=== PATIENT | female | born 1995 | race Caucasian/White ===

== ENCOUNTER → 2016-06-06 | Outpatient (CLI) | payer MEDICAID | LOC: RAD 17:23 | PROVIDERS: ATTEND Nurse Practitioner Family | DX: M25.532 Pain in left wrist (principal) ==

== ENCOUNTER 2016-06-20 20:05 | Emergency (ER) | payer MEDICAID ==
[2016-06-20 20:32] VITALS: BP 103/59
--- NOTE | 2016-06-20 21:02 | ER Document Report ---
HPI - HPI Patient complains to provider of: sore throat, cough, congestion Onset: Other - 2 days Onset/Duration: Gradual Pain Level: 4 Context: 20-year-old nonsmoking female complaining of sore throat, cough, congestion, losing her voice for 2 days. No fever or chills. No nausea vomiting or diarrhea. No chest pain or shortness of breath. Associated Symptoms: None Exacerbated by: Denies Relieved by: Denies Similar symptoms previously: No Recently seen / treated by doctor: No - ROS ROS below otherwise negative: Yes Systems Reviewed and Negative: Yes All other systems reviewed and negative - REPRODUCTIVE LMP: 04/03/16 Reproductive: DENIES: : - DERM Skin Color: Normal Past Medical History - General Information source: Patient - Social History Smoking Status: Never Smoker Frequency of alcohol use: None Drug Abuse: None Lives with: Spouse/Significant other Family History: Reviewed & Not Pertinent Patient has suicidal ideation: No Patient has homicidal ideation: No - Medical History Medical History: Negative Renal/ Medical History: Denies: Hx Peritoneal Dialysis Psychiatric Medical History: Reports: Hx Depression Surgical Hx: Negative - Immunizations Immunizations up to date: Yes Hx Diphtheria, Pertussis, Tetanus Vaccination: Yes Vertical Provider Document - CONSTITUTIONAL Agree With Documented VS: Yes Exam Limitations: No Limitations - INFECTION CONTROL TRAVEL OUTSIDE OF THE [place] IN LAST 30 DAYS: No - HEENT HEENT: Normocephalic, PERRLA, Pharyngeal Erythema. negative: Conjuctival Injection, Tympanic Membrane Red - NECK Neck: Supple - RESPIRATORY Respiratory: Breath Sounds Normal, No Respiratory Distress O2 Sat by Pulse Oximetry: 100 - CARDIOVASCULAR Cardiovascular: Regular Rate, Regular Rhythm - GI/ABDOMEN Gastrointestinal: Abdomen Soft, Abdomen Non-Tender, No Organomegaly - MUSCULOSKELETAL/EXTREMETIES Musculoskeletal/Extremeties: MAIBRAHIMA, SANTHOSH - NEURO Level of Consciousness: Awake, Alert, Appropriate - DERM Integumentary: Warm, Dry, No Rash Course - Vital Signs Vital signs: Temp Pulse Resp BP Pulse Ox 97.7 F 87 16 103/59 L 100 06/20/16 20:28 06/20/16 20:28 06/20/16 20:28 06/20/16 20:28 06/20/16 20:28 Discharge - Discharge Clinical Impression: Laryngitis, upper respiratory infection, sore throat Condition: Good Disposition: HOME, SELF-CARE Instructions: Sore Throat ([facility]), Laryngitis ([facility]), Upper Respiratory Illness ( [facility]) Additional Instructions: Plenty of fluids Coolmist humidifier at night, wash daily Tylenol or ibuprofen for discomfort Throat culture is pending Return to the emergency room if worse Please complete the patient satisfaction survey if you get one, and return it.. If you do not receive a survey, then you can go to the [facility] website, [email or web address] and place your comments about your very good care. Thank you very much. It was a pleasure being your medical provider today. Forms: Return to Work Referrals: ADDIE DIAZ, DO [Primary Care Provider] - Follow up as needed
== END 2016-06-20 21:20 | disposition home or self-care (01) ==
LOC: ER 20:05
DX: J04.0 Acute laryngitis (principal); J06.9 Acute upper respiratory infection, unspecified; R05 Cough
CPT/HCPCS: 87070; 99282

== ENCOUNTER 2016-06-25 22:06 | Emergency (ER) | payer MEDICAID ==
[2016-06-26] MEDS ORDERED: PREDNISONE 20 MG TABLET PO ONE (01:24)
[2016-06-26] MEDS ORDERED: AZITHROMYCIN 250 MG TABLET PO ONE (01:24)
--- NOTE | 2016-06-26 01:26 | ER Document Report ---
ED General - General Chief Complaint: Cough, fever, sore throat Stated Complaint: FEVER,COUGH,VOMITING Notes: Patient is a pleasant 20-year-old female presents with complaint of runny nose, cough, congestion, sore throat for just over one week. She also has some vomiting with cough. She was seen here one week ago. He is symptomatically treatment. She says she continues have a cough and now spiking fevers. No abdominal pain. No chest pain. No other complaints this time. No sick contacts. She does not smoke. She is not currently breast-feeding. TRAVEL OUTSIDE OF THE [place] IN LAST 30 DAYS: No - Related Data Allergies/Adverse Reactions: No Known Allergies Allergy (Verified 10/06/15 13:40) Past Medical History - Social History Smoking Status: Never Smoker Frequency of alcohol use: None Drug Abuse: None Family History: Reviewed & Not Pertinent Renal/ Medical History: Denies: Hx Peritoneal Dialysis Psychiatric Medical History: Reports: Hx Depression - Immunizations Immunizations up to date: Yes Hx Diphtheria, Pertussis, Tetanus Vaccination: Yes Review of Systems - Review of Systems Notes: My Normal Review Basic REVIEW OF SYSTEMS: CONSTITUTIONAL : Denies fever, chills, or sweats. Denies recent illness. EENT: Denies eye, ear, throat, or mouth pain or symptoms. Denies nasal or sinus congestion. RESPIRATORY: Recurrent cough GASTROINTESTINAL: Denies abdominal pain. Some vomiting. Denies constipation. Last BM: MUSCULOSKELETAL: Denies neck or back pain or joint pain or swelling. SKIN: Denies rash or skin lesions. NEUROLOGICAL: Denies altered mental status or loss of consciousness. Denies headache. Denies weakness or paralysis or loss of use of either side. Denies problems with gait or speech. Denies sensory or motor loss. ALL OTHER SYSTEMS REVIEWED AND NEGATIVE. Physical Exam - Vital signs Vitals: Temp Pulse BP Pulse Ox 100.6 F H 131 H 121/79 100 06/25/16 23:01 06/25/16 23:01 06/25/16 23:01 06/25/16 23:01 - Notes Notes: General Appearance: Well nourished, alert, cooperative, no acute distress, no obvious discomfort. Recurrent dry cough during exam. Vitals: reviewed, See vital signs table. Head: no swelling or tenderness to the head Eyes: PERRL, EOMI, Conjuctiva clear Mouth: No decreasd moisture Ears: Normal appearing tympanic membranes. Throat: No tonsillar inflammation, No airway obstruction, No lymphadenopathy Neck: Supple, no neck tenderness Lungs: No wheezing, No rales, No rhonci, No accessory muscle use, good air exchange bilaterally. Heart: Normal rate, Regular rythm, No murmur, no rub Extremities: strength 5/5 in all extremities, good pulses in all extremities, no swelling or tenderness in the extremities, no edema. Skin: warm, dry, appropriate color, no rash Neuro: speech clear, oriented x 3, normal affect, responds appropriately to questions. Course - Vital Signs Vital signs: Temp Pulse Resp BP Pulse Ox 100.6 F H 131 H 121/79 100 06/25/16 23:01 06/25/16 23:01 06/25/16 23:01 06/25/16 23:01 - Transfer of Care Notes: 06/26/16 01:36 Patient has bronchitis. Lung phipps are clear but she has recurrent dry cough and is now having a fever after weakness symptoms. I will place on azithromycin and prednisone. I encouraged her to return to the ER if she has difficulty breathing, worsening cough, recurrent high fevers, or she feels unwell. Patient agrees with plan and will be discharged home. Dictation of this chart was performed using voice recognition software; therefore, there may be some unintended grammatical errors. Discharge - Discharge Clinical Impression: Bronchitis Condition: Good Disposition: HOME, SELF-CARE Additional Instructions: BRONCHITIS: You have acute bronchitis. This disease is an infection or inflammation of the air passageways in your lungs. Symptoms usually include cough, low grade fever, shortness of breath, and wheezing. The cough usually persists for a couple of weeks. Most cases of bronchitis get better without antibiotics. We prescribe antibiotics when we believe bacteria are damaging your airways, or if there's high risk the bronchitis will worsen into pneumonia. Increase your fluid intake. A cool mist humidifier may make your lungs more comfortable. An expectorant (cough medicine that loosens phlegm) can help. If you smoke, STOP!!! Recovery from bronchitis can be somewhat slow, but you should see improvement within a day or two. Repeated episodes of bronchitis may result in lung damage -- for example, chronic bronchitis, recurrent pneumonias, or emphysema. Call the doctor if you develop increasing fever, shortness of breath, chest pain, bloody sputum, or otherwise worsen. If you have not improved at all after several days, contact the physician. STEROID MEDICATION: You have been given an injection of or oral medicine of the cortisone/ steroid class. This medication is used to control inflammation or allergy. Jordan t is usually only given for a short period of time, until the acute process subsides. There are usually no side effects from short-term use of cortisone-like medications. Some persons feel an increased sense of well-being and are not sleepy at bedtime. Long-term use of cortisone medications is best avoided, unless required for a severe condition. If your condition does not remit, or relapses after the course of corticosteroid medication, you should consult your physician. ANTIBIOTIC THERAPY: You have been given an antibiotic prescription. It's important that you take all the medication, unless instructed otherwise by your physician. Failure to complete the entire course can result in relapse of your condition. Common side effects of antibiotics include nausea, intestinal cramping, or diarrhea. Women may develop vaginal yeast infections, and babies can get yeast (thrush) in the mouth following the use of antibiotics. Contact your physician if you develop significant side effects from this medication. Allergy to this antibiotic can result in hives, wheezing, faintness, or itching. If symptoms of allergy occur, stop the medication and call your doctor. AZITHROMYCIN: Azithromycin (Zithromax) is a broad spectrum antibiotic in the same class as erythromycin. It can treat a variety of bacterial infections, but is most frequently used for respiratory infections. Azithromycin is extremely long-lasting. It accumulates in body tissues and continues to kill bacteria for many days. In order to improve absorption, Azithromycin should be taken at least one hour before or two hours after a meal. It does not have the same strong tendency to upset the stomach as erythromycin and is usually very well tolerated. Patients who have had a rash or other true allergic reactions to erythromycin should not take this medication. Call if you develop gastrointestinal distress, severe diarrhea, rash, hives, itching, or shortness of breath. FOLLOW-UP CARE: If you have been referred to a physician for follow-up care, call the physician s office for an appointment as you were instructed or within the next two days. If you experience worsening or a significant change in your symptoms, notify the physician immediately or return to the Emergency Department at any time for re-evaluation. Please return to the ER immediately if you have difficulty breathing, recurrent fevers, intractable vomiting, or feel unwell. Prescriptions: Azithromycin 250 mg PO DAILY #4 tablet Prednisone [Deltasone 20 mg Tablet] 3 tab PO DAILY 4 Days Forms: Return to Work
[2016-06-26 01:49] VITALS: BP 121/77
== END 2016-06-26 01:56 | disposition home or self-care (01) ==
LOC: ER 22:06
DX: J40 Bronchitis, not specified as acute or chronic (principal); R05 Cough; R09.89 Other specified symptoms and signs involving the circulatory and respiratory systems; R50.9 Fever, unspecified; F41.9 Anxiety disorder, unspecified; R00.0 Tachycardia, unspecified; J02.9 Acute pharyngitis, unspecified; R11.10 Vomiting, unspecified
CPT/HCPCS: 99283; Q0144; J7512

== ENCOUNTER 2017-02-22 19:50 | Inpatient (IN) | payer MEDICAID ==
[2017-02-22 20:35] LABS: APPEARANCE,URINE CLEAR; BILIRUBIN,URINE NEGATIVE (NEGATIVE); GLUCOSE, URINE 50 mg/dL (NEGATIVE); KETONES,URINE NEGATIVE (NEGATIVE); LEUKOCYTE ESTERASE,URINE NEGATIVE (NEGATIVE); NITRITE,URINE NEGATIVE (NEGATIVE); PROTEIN,URINE NEGATIVE (NEGATIVE); URINE SPECIFIC GRAVITY 1.009; UROBILINOGEN,URINE NEGATIVE mg/dL (<2.0)
[2017-02-22 20:37] LABS: AMNISURE (ROM) POSITIVE (NEGATIVE)
[2017-02-22] MEDS ORDERED: RINGERS SOLUTION,LACTATED 1,000 ML IV ONE (20:39)
[2017-02-22 20:51] LABS: URINE BARBITURATES SCREEN NEGATIVE; URINE METHADONE SCREEN NEGATIVE; URINE OPIATES LOW NEGATIVE; URINE PHENCYCLIDINE SCREEN NEGATIVE
[2017-02-22 21:26] LABS: ABSOLUTE BASOPHILS # (AUTO) 0.1 10^3/uL (0.0-0.2); ABSOLUTE EOSINOPHILS # (AUTO) 0.3 10^3/uL (0.0-0.6); ABSOLUTE LYMPHOCYTES (AUTO) 1.8 10^3/uL (0.5-4.7); ABSOLUTE NEUT (AUTO) 7.4 10^3/uL (1.7-8.2); BASOPHILS % (AUTO) 0.6 % (0-2); HEMATOCRIT 29.2 % (36.0-47.0); HEMOGLOBIN 9.8 g/dL (12.0-15.5); HGB HCT DIFFERENCE 0.2; MEAN CORPUSCULAR HGB CONC 33.6 g/dL (32.0-36.0); MEAN CORPUSCULAR VOLUME 81 fl (80-97); MONOCYTES % (AUTO) 9.9 % (3-13); RED BLOOD COUNT 3.63 10^6/uL (3.72-5.28); RED CELL DISTRIBUTION WIDTH 16.3 % (11.5-14.0); SEGMENTED NEUTROPHILS % (AUTO) 69.5 % (42-78); WHITE BLOOD COUNT 10.6 10^3/uL (4.0-10.5)
[2017-02-22 22:26] LABS: ADD HIVPANEL? NO; HIV (1 AND 2) ANTIBODY NEGATIVE (NEGATIVE)
[2017-02-23] MEDS ORDERED: OXYTOCIN/NORMAL SALINE 20 UNIT/1,000 ML RTUINJ ONE ×2 (00:09→04:57)
[2017-02-23] MEDS: RINGERS SOLUTION,LACTATED 1,000 ML IV PRN ×2 (00:20→02:27)
[2017-02-23] MEDS ORDERED: OXYTOCIN/NORMAL SALINE 20 UNIT/1,000 ML RTUINJ IV PRN ×2 (00:25→06:17)
[2017-02-23] MEDS ORDERED: EPHEDRINE SULFATE INJ 50 MG/1 ML AMPULE ONE (02:35)
[2017-02-23] MEDS ORDERED: FENTANYL/BUPIVACAINE/NS/PF 200 MCG/100 ML RTUINJ EPI ONE (02:36)
[2017-02-23] MEDS ORDERED: BUPIVACAINE HCL 0.25 % INJ/PF (2.5 MG/1 ML) 30 ML VIAL ONE (02:36)
[2017-02-23] MEDS ORDERED: BUPIVACAINE HCL 0.25 % INJ/PF (2.5 MG/1 ML) 30 ML VIAL INFIL ONE (03:14)
[2017-02-23] MEDS ORDERED: BENZOIN/ALOE VERA/STORAX/TOLU TINCTURE 60 ML TP PRN (03:14)
[2017-02-23] MEDS ORDERED: FENTANYL/BUPIVACAINE/NS/PF 200 MCG/100 ML RTUINJ EPI PRN (03:14)
[2017-02-23] MEDS ORDERED: MISOPROSTOL 0.2 MG TABLET ONE (04:56)
[2017-02-23] MEDS ORDERED: LIDOCAINE 1% INJ-PF (10 MG/ML) 30 ML SDV ONE (04:56)
[2017-02-23] MEDS ORDERED: ACETAMINOPHEN 650 MG SUPP.RECT PR PRN (06:17)
[2017-02-23] MEDS ORDERED: DIPHENHYDRAMINE HCL 25 MG CAPSULE PO PRN (06:17)
[2017-02-23] MEDS ORDERED: PROMETHAZINE HCL INJ 25 MG/1 ML VIAL IV PRN (06:17)
[2017-02-23] MEDS ORDERED: PSEUDOEPHEDRINE HCL 30 MG TABLET PO PRN (06:17)
[2017-02-23] MEDS ORDERED: DIBUCAINE 1% OINTMENT 28 GM TP PRN (06:17)
[2017-02-23] MEDS ORDERED: PROMETHAZINE HCL 25 MG SUPP.RECT PR PRN (06:17)
[2017-02-23] MEDS ORDERED: MEASLES,MUMPS&RUBELLA VACC/PF 0.5 ML VIAL SUBCUT PRN (06:17)
[2017-02-23] MEDS ORDERED: GLYCERIN/WITCH HAZEL LEAF 1 EACH MED..PAD TP PRN (06:17)
[2017-02-23] MEDS ORDERED: BENZOCAINE/MENTHOL AEROSOL SPRAY 56 ML TOP PRN (06:17)
[2017-02-23] MEDS ORDERED: ZOLPIDEM TARTRATE 5 MG TABLET PO PRN (06:17)
[2017-02-23] MEDS ORDERED: PROMETHAZINE HCL 25 MG TABLET PO PRN (06:17)
[2017-02-23] MEDS ORDERED: MAGNESIUM HYDROXIDE SUSP 30 ML UDCUP PO PRN (06:17)
[2017-02-23] MEDS ORDERED: NA PHOS,M-B/NA PHOS,DI-BA (ADULT) 133 ML ENEMA PR PRN (06:17)
[2017-02-23] MEDS ORDERED: DIPH/PERTUSS(ACELL)/TETANUS VAC/PF 0.5 ML SYR (>=10YO) IM PRN (06:17)
--- NOTE | 2017-02-23 06:34 | Delivery Summary ---
Del Sum A-C Datetime Report Generated by CPN: 02/23/2017 06:34 DELIVERY PERSONNEL DELIVERY PERSONNEL: [id number] Delivery Doctor:: Francisco J Floyd MD Labor and Delivery Nurse:: Luisa Shine RNmilk pickup driver Nurse:: Eunice Hicks RN Artists' Booking Representative/[employer] PI ARCHITECT: Mayco Fuchs, LEDGE MAN MATERNAL INFORMATION Delivery Anesthesia: Epidural Medications After Delivery: Pitocin Bolus-Please Comment; Pitocin Drip 20 Units/1000ml NSS Estimated Blood Loss (ml): 200 Maternal Complications: None Provider Comments: pt delivered viable female, nuchal cord reduced. apgars 8/9 no tears. LABOR SUMMARY EDC: 02/28/2017 00:00 No. Babies in Womb: 1 Attempted: No Labor Anesthesia: Epidural LABOR INFORMATION Reason for Induction: Not Applicable Onset of Labor: 02/22/2017 14:00 Complete Dilatation: 02/23/2017 05:31 Oxytocin: Augmentation Group B Beta Strep: Negative Antibiotics # of Doses: 0 Antibiotics Time of Last Dose: N/A Name of Antibiotic Given: N/A Steroids Given: None Reason Steroids Not Administered: Not Applicable MEMBRANES Membranes Rupture Method: Spontaneous Rupture of Membranes: 02/22/2017 14:00 Length of Rupture (hr): 15.93 Amniotic Fluid Color: Clear Amniotic Fluid Amount: Moderate Amniotic Fluid Odor: Normal STAGES OF LABOR Stage 1 hr: 15 Stage 1 min: 31 Stage 2 hr: 0 Stage 2 min: 25 Stage 3 hr: 0 Stage 3 min: 3 Total Time in Labor hr: 15 Total Time in Labor min: 59 VAGINAL DELIVERY Episiotomy: None Laceration #1: None Laceration Extension #1: N/A Laceration Repair: No Sponge Count Correct: N/A Sharps Count Correct: N/A CSECTION DELIVERY Primary Indication: N/A Secondary Indication: N/A CSection Incidence: N/A Labor: N/A Elective: N/A CSection Incision: N/A BABY A INFORMATION Delivery Date/Time: 02/23/2017 05:56 Method of Delivery: Vaginal Born in Route : No : N/A Forceps: N/A Vacuum Extraction: N/A Shoulder Dystocia : No PRESENTATION/POSITION BABY A Presentation: Cephalic Cephalic Presentation: Vertex Vertex Position: Direct OA Breech Presentation: N/A PLACENTA INFORMATION BABY A Placenta Delivery Time : 02/23/2017 05:59 Placenta Method of Delivery: Spontaneous Placenta Status: Delivered SCORES BABY A Heart Rate 1 min: >100 bpm Resp Effort 1 min: Good Cry Reflex Irritability 1 min: Cough or Sneeze or Pulls Away Muscle Tone 1 min: Active Motion Color 1 min: Blue/Pale Resuscitation Effort 1 min: Tactile Stimulation SCORE 1 MIN: 8 Heart Rate 5 min: >100 bpm Resp Effort 5 min: Good Cry Reflex Irritability 5 min: Cough or Sneeze or Pulls Away Muscle Tone 5 min: Active Motion Color 5 min: Body Freedom, Extremities Blue Resuscitation Effort 5 min: Tactile Stimulation SCORE 5 MIN: 9 INFORMATION BABY A Gestational Age at Delivery: 39.2 Gestational Status: Full Term- 39- 40.6 Weeks Outcome : Liveborn Condition : Stable Sex: Female IDENTIFICATION BABY A Verification Date/Time: 02/23/2017 06:18 ID Band Number: [id number] Mother's Name Verified: Yes RN Verifying : Luisa Shine/ Christie Hicks WEIGHT/LENGTH BABY A Infant Birthweight (gm): 3600 Infant Weight (lb): 7 Weight (oz): 15 Length (in): 21.00 Infant Length (cm): 53.34 CORD INFORMATION BABY A No. Cord Vessels: 3 Nuchal Cord : Around Neck x1, Loose Cord Blood Taken: Yes-For Eval (Mom's Blood Type - or O+) Infant Suction: Mouth; Nose ASSESSMENT BABY A Complications: None Physical Findings at Delivery: Within Normal Limits Infant Respirations: Appears Normal Skin to Skin: Yes Skin to Skin Time (min): 60 Radio Division Lieutenant/ALS Called : No Care By: Darío Hicks RN Transferred To: Remains with Mother BABY B INFORMATION : N/A SIGNATURES Signature: with User ID: [email or web address]
--- NOTE | 2017-02-23 08:02 | Warning Signs in Babies ---
VOD Warning Signs Datetime Report Generated by [facility]: 02/23/2017 08:01 VOD#[id number] -Warning Signs in Babies: Needs to be viewed. (02/22/2017 19:46:Lakshmi Muller RN)
[2017-02-23] MEDS ORDERED: IBUPROFEN 800 MG TABLET ONE (08:31)
[2017-02-23] MEDS: IBUPROFEN 800 MG TABLET PO SCH ×2 (08:34→22:00)
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
[2017-02-23] MEDS: PRENATAL VITAMIN W DHA CAPSULE PO SCH (09:04)
[2017-02-23] MEDS: FERROUS SULFATE 325 MG TABLET PO SCH ×2 (09:04→17:45)
[2017-02-23] MEDS: FAMOTIDINE 20 MG TABLET PO SCH (09:05)
[2017-02-23] MEDS: SENNOSIDES/DOCUSATE 8.6-50 MG 1 EACH TABLET PO SCH (09:05)
[2017-02-23] MEDS: DOCUSATE SODIUM 100 MG CAPSULE PO SCH ×2 (09:05→17:45)
[2017-02-23 20:38] VITALS: BP 107/58
[2017-02-24] MEDS: FAMOTIDINE 20 MG TABLET PO SCH ×2 (06:54→10:38)
[2017-02-24] MEDS: IBUPROFEN 800 MG TABLET PO SCH (06:54)
[2017-02-24 08:39] LABS: HEPATITIS C VIRUS AB 0.1 s/co ratio (0.0-0.9)
--- NOTE | 2017-02-24 09:16 | PDOC PROGRESS REPORT ---
Subjective-OB Subjective: Post Delivery Day: 2 21 year old. Denies any needs at this time, pt desires early discharge if baby is able to be d/c, states lochia is stable, pain is well controlled, voiding without difficulty, declines pp cbc. Physical Exam (OB) Vital Signs: Temp Pulse Resp BP Pulse Ox 98.2 F 88 16 107/58 L 99 02/23/17 19:26 02/23/17 19:26 02/23/17 19:26 02/23/17 19:26 02/23/17 19:26 Intake & Output 02/23/17 02/24/17 02/25/17 06:59 06:59 06:59 Intake Total 100 Balance 100 Weight 61.9 kg - Lochia Lochia Amount: Scant < 10 ml Lochia Color: Rubra/Red - Abdomen Description: Tender, Soft Hernia Present: No Fundal Description: Firm, Midline Fundal Height: u/u - u/2 Objective-Diagnostic Laboratory: 02/22/17 21:09 Assessment and Plan(PN) - Assessment and Plan (1) Vaginal delivery Is this a current diagnosis for this admission?: Yes Plan: d/c home, may cancel d/c if baby is not discharged. - Time Spent with Patient Time with patient: Less than 15 minutes Critical Time spent with patient: Less than 15 minutes Medications reviewed and adjusted accordingly: Yes - Disposition Anticipated Discharge: Home Within: within 24 hours
--- NOTE | 2017-02-24 09:19 | PDOC DISCHARGE SUMMARY ---
Final Diagnosis Discharge Date: 02/24/17 - Final Diagnosis (1) Vaginal delivery Is this a current diagnosis for this admission?: Yes Discharge Data - Discharge Medication Prescriptions: Docusate Sodium [Colace 100 mg Capsule] 100 mg PO BID #60 capsule Ferrous Sulfate [Feosol 325 mg Tablet] 325 mg PO BID #60 tablet Ibuprofen [Motrin 800 mg Tablet] 800 mg PO Q8 #60 tablet Home Medications: Docusate Sodium [Colace 100 mg Capsule] 100 mg PO BID #60 capsule 02/24/17 Ferrous Sulfate [Feosol 325 mg Tablet] 325 mg PO BID #60 tablet 02/24/17 Ibuprofen [Motrin 800 mg Tablet] 800 mg PO Q8 #60 tablet 02/24/17 Gestational Age: 39.2 Reason(s) for Admission: Onset of Labor, Gestional Diabetes Procedures: NST Intrapartum Procedure(s): Spontaneous Vaginal Delivery - [place] Data Baby 1 Female at 1 minute: 8 at 5 minutes: 9 Weight: 3660 kg Home with Mother: Yes Complications: No - Diagnosis Test Laboratory: Temp Pulse Resp BP Pulse Ox 98.2 F 88 16 107/58 L 99 02/23/17 19:26 02/23/17 19:26 02/23/17 19:26 02/23/17 19:26 02/23/17 19:26 02/22/17 02/22/17 20:05 21:09 RBC 3.63 L Hgb 9.8 L Hct 29.2 L Urine Opiates Screen NEGATIVE - Discharge information/Instructions Discharge Activity: Activity As Tolerated, Pelvic Rest, No tub bath Discharge Diet: Regular Disposition: HOME, SELF-CARE Follow up with: [facility] in: 4, Weeks
[2017-02-24] MEDS: DOCUSATE SODIUM 100 MG CAPSULE PO SCH (10:37)
[2017-02-24] MEDS: SENNOSIDES/DOCUSATE 8.6-50 MG 1 EACH TABLET PO SCH (10:37)
[2017-02-24] MEDS: FERROUS SULFATE 325 MG TABLET PO SCH (10:38)
[2017-02-24] MEDS: PRENATAL VITAMIN W DHA CAPSULE PO SCH (10:38)
== END 2017-02-24 14:56 | disposition home or self-care (01) | DRG 775 ==
LOC: LC 19:50 → LR 20:45 → 2S 02-23 08:40
PROVIDERS: ADMIT Obstetrics & Gynecology Gynecology; ATTEND Obstetrics & Gynecology Gynecology
PROC: 4A1HXCZ Monitoring of Products of Conception, Cardiac Rate, External Approach (ICD-10-PCS; 2017-02-22)
PROC: 10E0XZZ Delivery of Products of Conception, External Approach (ICD-10-PCS; principal; 2017-02-23)
DX: O24.429 Gestational diabetes mellitus in childbirth, unspecified control (principal); O99.344 Other mental disorders complicating childbirth; F43.10 Post-traumatic stress disorder, unspecified; F31.9 Bipolar disorder, unspecified; O69.81X0 Labor and delivery complicated by cord around neck, without compression, not applicable or unspecified; Z28.21 Immunization not carried out because of patient refusal; Z3A.39 39 weeks gestation of pregnancy; Z37.0 Single live birth
CPT/HCPCS: 36415; 80307; 81005; 84112; 85025; 86592; 86701; 86762; 86803; 86804; 86850; 86900; 86901; 87340; J2590; J3490

== ENCOUNTER 2017-02-26 06:35 | Emergency (ER) | payer MEDICAID ==
--- NOTE | 2017-02-26 07:39 | ER Document Report ---
ED General - General Chief Complaint: Hemorrhoids Stated Complaint: POSSIBLE HEMORROIDS Time Seen by Provider: 02/26/17 07:14 Mode of Arrival: Ambulatory Information source: Patient TRAVEL OUTSIDE OF THE [place] IN LAST 30 DAYS: No - HPI Onset: Other - x 3 days ago. Postpardum x 3 days ago. Noted hx of chronic hemorrhoids, has been isssue for 2 weeks. OBGYN gave her steriod cream to try, pt states she has not really used cream. Denies any vaginal pain, abd cramping. Denies any rectal bleeding. denies any LH, dizziness, blurred vision, double vision or loss of vision. has not been eating a high fiber diet. worse with time , nothing makes better. has not tried sitz baths, stool softner. pain 4/10, throbbing. Associated symptoms: None Exacerbated by: Other - bowel movement Relieved by: Denies, Other Similar symptoms previously: No Recently seen / treated by doctor: Yes - OBYN x 1 week ago - Related Data Allergies/Adverse Reactions: No Known Allergies Allergy (Verified 02/22/17 20:37) Past Medical History - General Information source: Patient - Social History Smoking Status: Former Smoker Lives with: Other - SO Family History: Reviewed & Not Pertinent - Past Medical History Cardiac Medical History: Reports: None, Other - full term , vaginal x 3 days ago Pulmonary Medical History: Reports: None EENT Medical History: Reports: None Neurological Medical History: Reports: None Renal/ Medical History: Denies: Hx Peritoneal Dialysis GI Medical History: Reports: None Musculoskeltal Medical History: Reports None Skin Medical History: Reports None Psychiatric Medical History: Reports: None, Hx Depression - Immunizations Immunizations up to date: Yes Hx Diphtheria, Pertussis, Tetanus Vaccination: Yes Review of Systems - Review of Systems Constitutional: No symptoms reported Cardiovascular: No symptoms reported Respiratory: No symptoms reported Gastrointestinal: See HPI, Other - hemorrhoids Genitourinary: No symptoms reported Female Genitourinary: No symptoms reported Musculoskeletal: No symptoms reported Skin: No symptoms reported Hematologic/Lymphatic: No symptoms reported Neurological/Psychological: No symptoms reported -: Yes All other systems reviewed and negative Physical Exam - Vital signs Vitals: Temp Pulse Resp BP Pulse Ox 97.5 F 86 18 112/65 99 02/26/17 06:47 02/26/17 06:47 02/26/17 06:47 02/26/17 06:47 02/26/17 06:47 - Respiratory Respiratory status: No respiratory distress Chest status: Nontender Breath sounds: Normal Chest palpation: Normal - Cardiovascular Rhythm: Regular Heart sounds: Normal auscultation Murmur: No Normal capillary refill: Yes - Abdominal Inspection: Normal Distension: No distension Bowel sounds: Normal Tenderness: Nontender Organomegaly: No organomegaly Notes: fudus below umbilicus - Rectal Stool: Heme negative Hemorrhoids: Other - external hemorrohids, non stragulated,grade 1 - Psychological Associated symptoms: Normal affect, Normal mood - Skin Skin Temperature: Warm Skin Moisture: Dry Course - Vital Signs Vital signs: Temp Pulse Resp BP Pulse Ox 98.3 F 89 18 116/69 98 02/26/17 07:55 02/26/17 07:55 02/26/17 07:55 02/26/17 07:55 02/26/17 07:55 Discharge - Discharge Clinical Impression: Hemorrhoids Qualifiers: Hemorrhoid type: first degree Qualified Code(s): K64.0 - First degree hemorrhoids Condition: Good Disposition: HOME, SELF-CARE Instructions: Hemorrhoids ([facility]) Additional Instructions: sitz baths take colace as directed use steriod cream as directed increase fiber follow up with OBGYN return to ER if s/s worsen Prescriptions: Docusate Sodium [Colace 100 mg Capsule] 100 mg PO BID 15 Days #30 capsule Pramoxine HCl/Mineral Oil/Znox [Anusol Ointment] 24 gm RC BID #30 oint..gm.
[2017-02-26 08:03] VITALS: BP 116/69
== END 2017-02-26 08:03 | disposition home or self-care (01) ==
LOC: ER 06:35
DX: O87.2 Hemorrhoids in the puerperium (principal); Z87.891 Personal history of nicotine dependence
CPT/HCPCS: 99282

== ENCOUNTER 2017-02-27 15:58 | Observation (INO) | payer MEDICAID ==
--- NOTE | 2017-02-27 16:44 | ER Document Report ---
ED GI Bleed / Rectal Pain - General Chief Complaint: Rectal Pain Stated Complaint: RECTAL PAIN Time Seen by Provider: 02/27/17 16:44 Mode of Arrival: Ambulatory Information source: Patient Notes: 21-year-old 4 day vaginal delivery with prolapsed hemorrhoids [facility] because they could not get the hemorrhoidal tissue to go back into the anus. She has not eaten anything since this morning. TRAVEL OUTSIDE OF THE [place] IN LAST 30 DAYS: No - Related Data Allergies/Adverse Reactions: No Known Allergies Allergy (Verified 02/27/17 16:07) Home Medications: Current Home Medications Hydrocortisone [Proctozone-Hc] 1 applic RC BID 02/27/17 [History] Past Medical History - General Information source: Patient - Social History Smoking Status: Never Smoker Frequency of alcohol use: None Drug Abuse: None Lives with: Family Family History: Reviewed & Not Pertinent Renal/ Medical History: Denies: Hx Peritoneal Dialysis Psychiatric Medical History: Reports: Hx Depression Surgical Hx: Negative - Immunizations Immunizations up to date: Yes Hx Diphtheria, Pertussis, Tetanus Vaccination: Yes Review of Systems - Review of Systems Constitutional: No symptoms reported EENT: No symptoms reported Cardiovascular: No symptoms reported Respiratory: No symptoms reported Gastrointestinal: See HPI Genitourinary: No symptoms reported Female Genitourinary: No symptoms reported Musculoskeletal: No symptoms reported Skin: No symptoms reported Hematologic/Lymphatic: No symptoms reported Neurological/Psychological: No symptoms reported Physical Exam - Vital signs Vitals: Temp Pulse Resp BP Pulse Ox 97.6 F 82 18 106/66 100 02/27/17 16:29 02/27/17 16:29 02/27/17 16:29 02/27/17 16:29 02/27/17 16:29 Interpretation: Normal - General General appearance: Appears well, Alert - HEENT Head: Normocephalic, Atraumatic Eyes: Normal Pupils: PERRL Neck: Supple - Respiratory Respiratory status: No respiratory distress Chest status: Nontender Breath sounds: Normal Chest palpation: Normal - Cardiovascular Rhythm: Regular Heart sounds: Normal auscultation Murmur: No - Abdominal Inspection: Normal Distension: No distension Bowel sounds: Normal Tenderness: Nontender. No: Tender Organomegaly: No organomegaly - Rectal Tenderness: Yes Hemorrhoids: External - large circumferential edematous rectal tissue prolapse with 1 small thrombosed hemorroid at 7 oclock. - Back Back: Normal, Nontender - Extremities General upper extremity: Normal inspection, Nontender, Normal color, Normal ROM , Normal temperature General lower extremity: Normal inspection, Nontender, Normal color, Normal ROM , Normal temperature, Normal weight bearing. No: Dante's sign - Neurological Neuro grossly intact: Yes Cognition: Normal Orientation: AAOx4 [place] Coma Scale Eye Opening: Spontaneous [place] Coma Scale Verbal: Oriented Mechelle Coma Scale Motor: Obeys Commands [place] Coma Scale Total: 15 Speech: Normal Motor strength normal: LUE, RUE, LLE, RLE Sensory: Normal - Psychological Associated symptoms: Normal affect, Normal mood - Skin Skin Temperature: Warm Skin Moisture: Dry Skin Color: Normal Skin irregularity: negative: Rash Course - Re-evaluation Re-evalutation: 02/27/17 17:25 dr little will see the pt in the room. 02/27/17 18:13 Dr. Little is taking the patient to the OR now. 02/27/17 18:42 pt ate a candy bar 1 hour ago, so no surgery tonight - Vital Signs Vital signs: Temp Pulse Resp BP Pulse Ox 98.3 F 59 L 16 106/58 L 100 02/27/17 20:24 02/27/17 20:24 02/27/17 20:24 02/27/17 20:24 02/27/17 20:24 Discharge - Discharge Clinical Impression: Prolapsed hemorrhoids Condition: Stable Disposition: ADMITTED OBSERVATION Admitting Provider: Surgicalist Unit Admitted: OR
[2017-02-27] MEDS ORDERED: NORMAL SALINE 1000 ML 1,000 ML IV ONE ×2 (18:08→20:30)
[2017-02-27] MEDS ORDERED: MORPHINE SULFATE 10 MG/ML INJ IV ONE (18:09)
[2017-02-27] MEDS ORDERED: ONDANSETRON HCL INJ/PF 4 MG/2 ML SDV IV ONE (18:09)
[2017-02-27] MEDS ORDERED: PIPERACILLIN/TAZOBACTAM 3.375 GM VIAL IV ONE (18:10)
[2017-02-27] MEDS ORDERED: MORPHINE SULFATE 10 MG/ML INJ IV PRN (19:52)
--- NOTE | 2017-02-27 19:52 | PDOC H&P ---
History of Present Illness Admission Date/PCP: 02/27/17 18:35 BRIE ALDANA MD Patient complains of: rectal pains History of Present Illness: MATTHEW TERRY is a 21 year old female who is 5 days post . Yesterday started c/o rectal pains. Went to a health clinic today and referred to ED. She was then noted to have prolapsed/ thrombosed hemorrhoids. Past Medical History GI Medical History: Reports: Other - Had prolased hemorrhoids during first but very transient ,subside Psychiatric Medical History: Reports: Depression Past Surgical History Past Surgical History: Reports: Other - Left jaw surgery for TMJ Social History Smoking Status: Never Smoker Family History Family History: Reviewed & Not Pertinent Parental Family History Reviewed: Yes - Father of complications of Diabetes Children Family History Reviewed: No Sibling(s) Family History Reviewed.: No Medication/Allergy Home Medications: Hydrocortisone [Proctozone-Hc] 1 applic RC BID 02/27/17 Ranitidine HCl [Zantac] 150 mg PO QHS 02/27/17 Allergies/Adverse Reactions: No Known Allergies Allergy (Verified 02/27/17 16:07) Review of Systems Constitutional: PRESENT: other - no fever/chills Eyes: PRESENT: other - No visual or hearing problems Nose, Mouth, and Throat: PRESENT: other - no sore throat Breasts: PRESENT: other - Breast feeds Cardiovascular: PRESENT: other - no chest pains Respiratory: PRESENT: other - no cough Gastrointestinal: PRESENT: other - no abdominal pains Genitourinary: PRESENT: other - no dysuria Integumentary: PRESENT: other - no rash Neurological: PRESENT: other - no seizures Psychiatric: PRESENT: other - no anxiety Endocrine: PRESENT: other - no polyuria Hematologic/Lymphatic: PRESENT: other - no easy bruisability Physical Exam Vital Signs: Temp Pulse Resp BP Pulse Ox 97.6 F 82 18 106/66 100 02/27/17 16:29 02/27/17 16:29 02/27/17 16:29 02/27/17 16:29 02/27/17 16:29 General appearance: PRESENT: mild distress Head exam: PRESENT: atraumatic Eye exam: PRESENT: conjunctiva pink Ear exam: PRESENT: normal external ear exam Mouth exam: PRESENT: moist, tongue midline Respiratory exam: PRESENT: clear to auscultation tamie Cardiovascular exam: PRESENT: RRR Pulses: PRESENT: normal radial pulses Vascular exam: PRESENT: normal capillary refill GI/Abdominal exam: PRESENT: soft Rectal exam: PRESENT: hemorrhoids, other - Prolapsed/thrombosed hemorrhoids Extremities exam: PRESENT: full ROM Musculoskeletal exam: PRESENT: ambulatory Neurological exam: PRESENT: alert, oriented to person, oriented to place, oriented to time, oriented to situation Psychiatric exam: PRESENT: appropriate affect Skin exam: PRESENT: normal color, warm Assessment & Plan - Diagnosis (1) Thrombosed hemorrhoids Is this a current diagnosis for this admission?: Yes - Time Time Spent: 30 to 50 Minutes - Inpatient Certification Based on my medical assessment, after consideration of the patient's comorbidities, presenting symptoms, or acuity I expect that the services needed warrant INPATIENT care.: No - Plan Summary Plan Summary: Had thrombectomy of one hemorrhoid in the ED but unable to reduced prolapsed hemorrhoids Just had ate. Will admit and keep npo after midnite. For hemorrhoidectomy in am. Check CBC with diff'l Start IV antibiotics post thrombectomy of one hemorrhoid.
[2017-02-27] MEDS: NORMAL SALINE 1000 ML 1,000 ML IV PRN (20:26)
[2017-02-27] MEDS ORDERED: DEXTROSE 40% GEL 15 GM TUBE PO PRN ×2 (20:37)
[2017-02-27] MEDS ORDERED: DEXTROSE 50%-WATER 25 GM/50 ML DISP.SYRIN IV PRN ×2 (20:37)
[2017-02-27] MEDS ORDERED: GLUCAGON,HUMAN RECOMB 1 MG INJ SUBCUT PRN (20:37)
[2017-02-27] MEDS: HYDROMORPHONE HCL INJ/PF 2 MG/ML AMPULE IV PRN (22:28)
[2017-02-28] MEDS: PIPERACILLIN SODIUM/TAZOBACTAM 3.375 GM in NORMAL SALINE 100 ML IV SCH ×3 (01:38→15:26)
[2017-02-28] MEDS: NORMAL SALINE 1000 ML 1,000 ML IV PRN (01:39)
[2017-02-28] MEDS: HYDROMORPHONE HCL INJ/PF 2 MG/ML AMPULE IV PRN ×2 (03:00→08:25)
[2017-02-28] MEDS ORDERED: GLYCERIN/WITCH HAZEL LEAF 1 EACH MED..PAD TP PRN (09:09)
[2017-02-28] MEDS ORDERED: PROMETHAZINE HCL INJ 25 MG/1 ML VIAL IV PRN ×2 (12:19)
[2017-02-28] MEDS ORDERED: ONDANSETRON HCL INJ/PF 4 MG/2 ML SDV IV PRN (12:19)
[2017-02-28] MEDS ORDERED: MORPHINE SULFATE 10 MG/ML INJ IV PRN (12:19)
[2017-02-28] MEDS ORDERED: FENTANYL CITRATE INJ/PF 100 MCG/2 ML AMPUL IV PRN ×3 (12:19)
[2017-02-28] MEDS ORDERED: MEPERIDINE HCL/PF INJ 25 MG/1 ML DISP.SYRIN IV PRN (12:19)
[2017-02-28] MEDS ORDERED: DIPHENHYDRAMINE HCL 50 MG/ML VIAL IV PRN (12:19)
[2017-02-28] MEDS ORDERED: FENTANYL CITRATE INJ/PF 100 MCG/2 ML AMPUL ONE ×2 (12:22→13:34)
[2017-02-28] MEDS ORDERED: EPHEDRINE SULFATE INJ 50 MG/1 ML AMPULE ONE (12:22)
[2017-02-28] MEDS ORDERED: MIDAZOLAM 2 MG/2 ML INJ ONE (12:22)
[2017-02-28] MEDS ORDERED: PROPOFOL INJ 200 MG/20 ML VIAL IV ONE (12:23)
[2017-02-28] MEDS ORDERED: BUPIVACAINE HCL 0.25% /EPINEPHRINE INJ/PF 30 ML SDV ONE (12:32)
[2017-02-28] MEDS ORDERED: ACETAMINOPHEN 100 ML IV ONE (12:33)
[2017-02-28] MEDS ORDERED: LIDOCAINE 2% JELLY 30 ML TUBE ONE (13:07)
[2017-02-28] MEDS ORDERED: THROMBIN (BOVINE) 5000 UNIT EPITAXIS KIT ONE (13:50)
[2017-02-28] MEDS ORDERED: KETOROLAC TROMETHAMINE INJ/PF 30 MG/1 ML SDV IV PRN (15:12)
[2017-02-28] MEDS ORDERED: KETOROLAC TROMETHAMINE 10 MG TABLET PO PRN (15:13)
--- NOTE | 2017-02-28 15:13 | OPERATIVE REPORT E ---
Operative Report NAME: MATTHEW TERRY : 1995 AGE: 21Y DATE OF SURGERY: 02/28/2017 ROOM: 210 PREOPERATIVE DIAGNOSIS: PROLAPSED THROMBOSED HEMORRHOIDS. POSTOPERATIVE DIAGNOSIS: PROLAPSED THROMBOSED EXTERNAL HEMORRHOIDS. OPERATION: Hemorrhoidectomy. SURGEON: JERMAIN BOWSER M.D. ANESTHESIA: General. INDICATIONS: This is a 21-year-old female, about 5 days . Patient noted to have pain in the rectal area with some difficulty ambulating, because of pains. Seen at the [facility] yesterday and sent to the ED. Patient noted to have thrombosed prolapsed hemorrhoids. An attempt was done to remove some of the clots in one of the hemorrhoids in the emergency room, but this was not enough to get rid of her pain, plus most of the other hemorrhoids also are thrombosed. Since patient ate just prior to being seen by Anesthesia, patient was then admitted, kept n.p.o. last night and had surgery this morning. PROCEDURE: After adequate general anesthesia, patient was placed in lithotomy position and the perianal area prepped and draped in the usual sterile fashion. An appropriate timeout was then called. With the use of the LigaSure, the hemorrhoid around the 11 o'clock position was serially coagulated, it from the 2 other hemorrhoids. Next, the mucosal part was then cauterized and divided with use of the same LigaSure. Cutaneous part was then divided real close to the mucosal side. The thrombosed vessels in the middle were then also cauterized underneath the thrombosed sites. This was serially done and the hemorrhoid was then completely removed. The partial defect was between the mucosa and close to this cutaneous area was then reapproximated with interrupted sutures using 3-0 chromic catgut. Next, 3 other hemorrhoids were removed in the same fashion, at the 1 o'clock position, the 7 o'clock position, and a smaller hemorrhoid around the 4 o'clock position. Following this, hemostasis appeared to be adequate. The rectal area appeared to have a wider opening, with all the hemorrhoids removed that we could visualize. There may be one area on the left at the 4 o'clock position which may have a smaller hemorrhoid that was controlled with suture ligature using 3-0 chromic catgut. After completion of the procedure, an injection along the surrounding skin area was then done using 20 mL of Marcaine with epinephrine. A Gelfoam-soaked thrombin was then used as a rectal plug, with the edges placed on the operative site for further hemostasis. Sterile dressings placed over the operative site. Needle, instrument and sponge counts were all correct, and estimated blood loss was about 10 mL. Patient then brought to the recovery room in satisfactory condition. DICTATING PHYSICIAN: JERMAIN BOWSER M.D. [id number] PHY#: [id number] ID: [id number] JOB#: [id number] ACCT: [id number] cc:JERMAIN BOWSER M.D. >
[2017-02-28] MEDS ORDERED: SUCCINYLCHOLINE CHLORIDE INJ 200 MG/10 ML VIAL ONE (16:37)
[2017-02-28] MEDS ORDERED: GLYCOPYRROLATE INJ 0.4 MG/2 ML VIAL ONE (16:37)
[2017-02-28] MEDS ORDERED: ONDANSETRON HCL INJ/PF 4 MG/2 ML SDV ONE (16:37)
[2017-02-28] MEDS ORDERED: METOCLOPRAMIDE HCL INJ/PF 10 MG/2 ML SDV ONE (16:37)
[2017-02-28] MEDS ORDERED: DEXAMETHASONE SOD PHOSPHATE INJ 4 MG/1 ML VIAL ONE (16:37)
[2017-02-28] MEDS ORDERED: LIDOCAINE 2% INJ-PF (20 MG/ML) 2 ML AMPUL ONE (16:37)
[2017-02-28 18:14] VITALS: BP 112/66
== END 2017-02-28 18:58 | disposition home or self-care (01) ==
LOC: ER 15:58 → EH 18:35 → 2N 19:55
PROVIDERS: ADMIT Surgery; ATTEND Surgery
PROC: 06BY0ZC Excision of Hemorrhoidal Plexus, Open Approach (ICD-10-PCS; principal; 2017-02-28 12:30)
DX: O87.2 Hemorrhoids in the puerperium (principal); K64.5 Perianal venous thrombosis; K64.8 Other hemorrhoids
CPT/HCPCS: 99284; 96375; 96365; 88304 ×2; 46320; J2250; J3490 ×6; J1100; J3010; J2765; J2270; J1170 ×2; J0330; J2405 ×2; J7030 ×2; J2704; J2543 ×2; J0131; 902

== ENCOUNTER 2017-12-10 08:59 | Emergency (ER) | payer MEDICAID ==
[2017-12-10 09:18] VITALS: BP 127/80
[2017-12-10] MEDS ORDERED: LIDOCAINE 2% VISCOUS SOLN 20 ML UDCUP PO ONE (09:28)
--- NOTE | 2017-12-10 09:38 | ER Document Report ---
HPI - HPI Pain Level: 5 Notes: Patient is a 22-year-old female who presents to the ED complaining of severe right ear pain, nasal congestion/discharge, sore throat, dry nonproductive cough , 4 days with the ear pain x1 day. Patient states that she is still eating and drinking without difficulties, but does have a decreased p.o. intake. She is still urinating normally having normal bowel movements. Patient has been using some [id number] meds for symptoms. She denies any significant past medical history including cardiopulmonary history and immunocompromised conditions. Patient denies any smoking or IV drug use. Denies any current headache, neck pain, chest pain, palpitations, syncope, shortness of breath, wheeze, dyspnea, abdominal pain, nausea/vomiting/diarrhea, urinary retention, dysuria, hematuria, or rash. - ROS Systems Reviewed and Negative: Yes All other systems reviewed and negative - CONSTITUTIONAL Constitutional: REPORTS: Fever, Chills - EENT EENT: REPORTS: Ear Pain. DENIES: Sore Throat, Eye problems - NEURO Neurology: DENIES: Headache, Weakness, Vision blurred, Dizzinesss / Vertigo - CARDIOVASCULAR Cardiovascular: DENIES: Chest pain - RESPIRATORY Respiratory: DENIES: Trouble Breathing, Coughing - GASTROINTESTINAL Gastrointestinal: DENIES: Abdominal Pain, Black / Bloody Stools - URINARY Urinary: DENIES: Dysuria, Urgency, Frequency - REPRODUCTIVE Reproductive: DENIES: : - MUSCULOSKELETAL Musculoskeletal: DENIES: Extremity pain Past Medical History - Social History Smoking Status: Never Smoker Chew tobacco use (# tins/day): No Frequency of alcohol use: Occasional Drug Abuse: None Family History: Reviewed & Not Pertinent Patient has suicidal ideation: No Patient has homicidal ideation: No Renal/ Medical History: Denies: Hx Peritoneal Dialysis Psychiatric Medical History: Reports: Hx Depression Past Surgical History: Reports: Other - Left jaw surgery for TMJ - Immunizations Immunizations up to date: Yes Hx Diphtheria, Pertussis, Tetanus Vaccination: Yes Vertical Provider Document - CONSTITUTIONAL Agree With Documented VS: Yes Notes: PHYSICAL EXAMINATION: GENERAL: Well-appearing, well-nourished and in no acute distress. A&Ox4. Answers questions appropriately. Moves comfortably w/o notable distress HEAD: Atraumatic, normocephalic. EYES: Pupils equal round and reactive to light, extraocular movements intact, sclera anicteric, conjunctiva are normal. ENT: EAC clear b/l. Rt TM very erythemic and bulging. Lt dull. Nares patent and with clear discharge. oropharynx mild erythema without exudates. No tonsilar hypertrophy without erythema or exudate. No palatine shift. Uvula midline. No tongue protrusion. No drooling, hoarseness, or airway compromise. Moist mucous membranes. No sinus tenderness. NECK: Normal range of motion, supple without lymphadenopathy. No rigidity/ meningismus. LUNGS: Breath sounds clear to auscultation bilaterally and equal. No wheezes rales or rhonchi. No retractions HEART: Regular rate and rhythm without murmurs, rubs, gallops. ABDOMEN: Soft, nontender, nondistended abdomen. No guarding, no rebound. No masses appreciated. Normal bowel sounds present. No CVA tenderness bilaterally. No hepatosplenomegaly. NEUROLOGICAL: Normal speech, normal gait. PSYCH: Normal mood, normal affect. SKIN: Warm, Dry, normal turgor, no rashes or lesions noted. - INFECTION CONTROL TRAVEL OUTSIDE OF THE [place] IN LAST 30 DAYS: No Course - Re-evaluation Re-evalutation: 12/10/17 09:36 Patient is an afebrile, well-hydrated, 22-year-old female who presents to the ED with an acute otitis media of the right ear and acute URI. Vitals are acceptable without any significant tachycardia, tachypnea, or hypoxia. PE is otherwise unremarkable aside from the obvious otitis media in the right ear that does appear very painful. Patient was crying throughout the exam because of the pain. I did instill viscous lidocaine into the right ear (there is no tympanic membrane rupture) which immediately resolved the patient's pain, but will only be temporary. No further labs or imaging warranted at this time based on H&P. Patient is nontoxic-appearing and is tolerating p.o. without any difficulties. I will cover her with amoxicillin. Recheck with your PCM in 2-3 days, consider consult with ENT. Return to the ED with any worsening/ concerning symptoms otherwise as reviewed in discharge. Patient is in agreement. - Vital Signs Vital signs: Temp Pulse Resp BP Pulse Ox 98.2 F 72 16 127/80 H 99 12/10/17 09:16 12/10/17 09:16 12/10/17 09:16 12/10/17 09:16 12/10/17 09:16 Discharge - Discharge Clinical Impression: Acute otitis media, right, Acute URI Condition: Stable Disposition: HOME, SELF-CARE Instructions: Otitis Media ([facility]), Upper Respiratory Illness ([facility]) Additional Instructions: Maintain adequate fluid intake Take meds as directed tylenol/ibuprofen as needed over the counter cold medication as needed for symptoms Humidified air may help Wash your hands regularly Wear a mask when coughing F/u: with your PCM in 2-3 days for a recheck Return to the ED with any fever, worsening pain, chest pain, palpitations, syncope, worsening GARCIA, neck pain/stiffness, shortness of breath, wheezing, drooling, trouble swallowing/breathing, abdominal pain, n/v/d, rash, or worsening/concerning symptoms otherwise. Prescriptions: Amoxicillin Trihydrate [Amoxil 875 mg Tablet] 1 tab PO BID #20 tablet Forms: Elevated Blood Pressure Referrals: BRIE ALDANA MD [Primary Care Provider] - Follow up as needed STAR MADISON DO [ASSOCIATE] - Follow up as needed
== END 2017-12-10 09:48 | disposition home or self-care (01) ==
LOC: ER 08:59
DX: H66.91 Otitis media, unspecified, right ear (principal); J06.9 Acute upper respiratory infection, unspecified; H92.01 Otalgia, right ear; R09.81 Nasal congestion; J02.9 Acute pharyngitis, unspecified; R05 Cough; R50.9 Fever, unspecified
CPT/HCPCS: 99282; J3490

== ENCOUNTER 2017-12-16 13:10 | Emergency (ER) | payer MEDICAID ==
[2017-12-16 13:19] VITALS: BP 110/69
[2017-12-16] MEDS ORDERED: IBUPROFEN 800 MG TABLET PO ONE (14:24)
--- NOTE | 2017-12-16 14:25 | ER Document Report ---
HPI - HPI Patient complains to provider of: Right ear pain Onset/Duration: Persistent Quality of pain: Achy Pain Level: 3 Context: Patient presents complaining of right ear pain for the past 9 days. Patient was started on antibiotics 6 days ago but denies any significant improvement in her pain symptoms. Patient states she also has decreased hearing to the right ear. Patient denies any fever or drainage from the ear. Associated Symptoms: Earache. denies: Fever Exacerbated by: Denies Relieved by: Denies Similar symptoms previously: Yes Recently seen / treated by doctor: Yes - ROS ROS below otherwise negative: Yes Systems Reviewed and Negative: Yes All other systems reviewed and negative - CONSTITUTIONAL Constitutional: DENIES: Fever - EENT EENT: REPORTS: Ear Pain - right - RESPIRATORY Respiratory: DENIES: Coughing - GASTROINTESTINAL Gastrointestinal: DENIES: Nausea, Patient vomiting - REPRODUCTIVE Reproductive: DENIES: : - DERM Skin Color: Normal Skin Problems: None Past Medical History - General Information source: Patient - Social History Smoking Status: Current Every Day Smoker Frequency of alcohol use: None Drug Abuse: None Occupation: Retail Family History: Reviewed & Not Pertinent Patient has suicidal ideation: No Patient has homicidal ideation: No Renal/ Medical History: Denies: Hx Peritoneal Dialysis Psychiatric Medical History: Reports: Hx Depression Surgical Hx: Negative Past Surgical History: Reports: Other - Left jaw surgery for TMJ - Immunizations Immunizations up to date: Yes Hx Diphtheria, Pertussis, Tetanus Vaccination: Yes Vertical Provider Document - CONSTITUTIONAL Agree With Documented VS: Yes Exam Limitations: No Limitations General Appearance: WD/WN, No Apparent Distress - INFECTION CONTROL TRAVEL OUTSIDE OF THE [place] IN LAST 30 DAYS: No - HEENT HEENT: Atraumatic, Normocephalic, Tympanic Membrane Red - mild, Tympanic Membrane Bulging. negative: Pharyngeal Exudate, Pharyngeal Tenderness, Pharyngeal Erythema - NECK Neck: Normal Inspection, Supple. negative: Lymphadenopathy-Left, Lymphadenopathy-Right - RESPIRATORY Respiratory: Breath Sounds Normal, No Respiratory Distress - CARDIOVASCULAR Cardiovascular: Regular Rate, Regular Rhythm - MUSCULOSKELETAL/EXTREMETIES Musculoskeletal/Extremeties: MAEW, FROM - NEURO Level of Consciousness: Awake, Alert, Appropriate Motor/Sensory: No Motor Deficit - DERM Integumentary: Warm, Dry, No Rash Course - Re-evaluation Re-evalutation: 12/16/17 14:20 Patient presents complaining of worsening right ear pain despite being on antibiotics. Patient concerned that antibiotic is not effective. Patient without fever. Patient does have erythema that persist to right ear, no TM rupture, no mastoid tenderness or swelling. Patient nontoxic in appearance. - Vital Signs Vital signs: Temp Pulse Resp BP Pulse Ox 97.4 F 63 110/69 96 12/16/17 13:15 12/16/17 13:15 12/16/17 13:15 12/16/17 13:15 Discharge - Discharge Clinical Impression: Acute otitis media, right Condition: Stable Disposition: HOME, SELF-CARE Instructions: Augmentin ([facility]), Otitis Media ([facility]) Additional Instructions: Return immediately for any new or worsening symptoms Followup with your primary care provider, call tomorrow to make a followup appointment Follow-up with title search manager for any persistent problems Prescriptions: Amox Tr/Potassium Clavulanate [Augmentin 875-125 Tablet] 1 tab PO BID 10 Days tablet Naproxen [Naprosyn 250 Nmg Tablet] 1 tab PO BID #14 tablet Forms: Return to Work Referrals: [facility] [Provider Group] - Follow up as needed
== END 2017-12-16 14:31 | disposition home or self-care (01) ==
LOC: ER 13:10
DX: H66.91 Otitis media, unspecified, right ear (principal); F17.200 Nicotine dependence, unspecified, uncomplicated
CPT/HCPCS: 99282; J3490

== ENCOUNTER → 2018-10-12 | Outpatient (CLI) | payer MEDICAID | LOC: RAD 15:54 | PROVIDERS: ATTEND Nurse Practitioner Acute Care | DX: Z53.9 Procedure and treatment not carried out, unspecified reason (principal) ==

== ENCOUNTER → 2019-03-01 | Outpatient (CLI) | payer MEDICAID ==
[2019-03-01 17:03] LABS: T.VAGINALIS (WET MOUNT) NO TRICHOMONAS SEEN; WBCS (WET MOUNT) 3+ WBCS SEEN; YEAST (WET MOUNT) YEAST SEEN
[2019-03-01 17:04] LABS: BACTERIA (WET MOUNT) 4+ BACTERIA SEEN; EPITHELIALS (WET MOUNT) 3+ EPITHELIALS SEEN
[2019-03-01 18:34] LABS: CHLAM PCR NOT DETECTED (NOT DETECT)
== END ==
LOC: LAB 16:58
PROVIDERS: ATTEND Physician Assistant Medical
DX: N76.0 Acute vaginitis (principal)
CPT/HCPCS: 87210; 87491; 87591